=== PATIENT | female | born 1960 | race African-American/Black ===

== ENCOUNTER 2017-04-02 16:37 | Emergency (ER) | payer MEDICARE, MEDICAID ==
[2017-04-02 16:47] VITALS: BP 121/90
--- NOTE | 2017-04-02 17:08 | UC ---
Throat Pain/Nasal Ranulfo HPI - HPI Summary HPI Summary: ST and cough starting 2-3 days ago. Works at the [employer], there are cases of strep there. - History of Current Complaint Chief Complaint: UCRespiratory Stated Complaint: SORE THROAT Time Seen by Provider: 04/02/17 16:54 Hx Obtained From: Patient Hx Last Menstrual Period: 11/2013 ?: No Onset/Duration: Gradual Onset, Lasting Days Severity: Moderate Cough: Sputum Appears - green/yellow, states not coughing a lot Associated Signs & Symptoms: Negative: Vomiting, Rash - Allergies/Home Medications Allergies/Adverse Reactions: Allergies Allergy/AdvReac Type Severity Reaction Status Date / Time Latex Allergy Severe Swelling Verified 03/22/17 11:18 PMH/Surg Hx/FS Hx/Imm Hx Respiratory History: Bronchitis Cancer History: Other - kidney CA Other Cancer History: kidney Other History Of: Negative For: Anticoagulant Therapy - Surgical History Surgical History: Yes Surgery Procedure, Year, and Place: Hernia repair x2,. Cone biopsy x2,. Ectopic x3,. Lt Ankle surgery x3,. Right nephrectomy 05/25/10 ( DUE TO CANCER);. Laproscopy x1,. LEFT BREAST BIOPSY, 2013 [facility]. - Family History Known Family History: Positive: Cardiac Disease, Hypertension - Social History Occupation: Employed Full-time Alcohol Use: Occasionally Alcohol Amount: 3 BEERS 2-3X WKLY Substance Use Type: None, Marijuana Substance Use Comment - Amount & Last Used: states none Smoking Status (MU): Former Smoker Type: Cigarettes Amount Used/How Often: 1/2 PPD Length of Time of Smoking/Using Tobacco: 18 years Have You Smoked in the Last Year: No When Did the Patient Quit Smoking/Using Tobacco: 7 years ago Household Exposure Type: Cigarettes - Immunization History Most Recent Influenza Vaccination: NEVER & REFUSES Most Recent Tetanus Shot: 2004 Most Recent Pneumonia Vaccination: NEVER & REFUSES Review of Systems Constitutional: Negative Skin: Negative Eyes: Negative ENT: Sore Throat Respiratory: Cough Cardiovascular: Negative Gastrointestinal: Negative Genitourinary: Negative Motor: Negative Neurovascular: Negative Musculoskeletal: Negative Neurological: Negative Psychological: Negative All Other Systems Reviewed And Are Negative: Yes Physical Exam Triage Information Reviewed: Yes Appearance: Well-Appearing, No Pain Distress, Well-Nourished Vital Signs: Initial Vital Signs Temp 98.1 F 04/02/17 16:43 Pulse 76 04/02/17 16:43 Resp 18 04/02/17 16:43 BP 121/90 04/02/17 16:43 Pulse Ox 100 04/02/17 16:43 Vital Signs Reviewed: Yes Eye Exam: Normal, Other - PERRL Eyes: Positive: Conjunctiva Clear ENT: Positive: TMs normal, Tonsillar swelling, Tonsillar exudate. Negative: Pharyngeal erythema Dental Exam: Normal Neck exam: Normal Neck: Positive: Supple, Nontender, No Lymphadenopathy Respiratory Exam: Other - occ productive cough Respiratory: Positive: Chest non-tender, Lungs clear, Normal breath sounds, No respiratory distress, No accessory muscle use Cardiovascular Exam: Normal Cardiovascular: Positive: RRR, No Murmur Musculoskeletal Exam: Normal Neurological Exam: Normal Neurological: Positive: Alert Psychological Exam: Normal Skin Exam: Normal Throat Pain/Nasal Course/Dx - Differential Dx/Diagnosis Provider Diagnoses: tonsillitis. bronchitis Discharge - Discharge Plan Condition: Stable Disposition: HOME Prescriptions: Amoxicillin (*) [Amoxicillin 875 MG (*)] 875 mg PO BID #10 tab Fluconazole [Diflucan 150 MG (NF)] 150 mg PO ONCE #1 tab Patient Education Materials: Tonsillitis (ED) Referrals: Lindsay Feng MD [Primary Care Provider] - Additional Instructions: Call or return if you develop increasing fever, shortness of breath, chest pain , bloody sputum, or otherwise worsen. If you have not improved at all after several days, contact your primary care physician or return here.
== END 2017-04-02 17:37 | disposition home or self-care (01) ==
LOC: UCEAST 16:37
DX: J03.90 Acute tonsillitis, unspecified (principal); J40 Bronchitis, not specified as acute or chronic; Z87.891 Personal history of nicotine dependence
CPT/HCPCS: 87651; 99212; G0463

== ENCOUNTER 2017-04-21 10:50 | Emergency (ER) | payer MEDICARE, MEDICAID ==
[2017-04-21 10:56] VITALS: BP 140/95
--- NOTE | 2017-04-21 11:35 | UC ---
Back Pain HPI - HPI Summary HPI Summary: LEFT ANKLE TWISTED YESTERDAY, FALL ONTO RIGHT RIBS ONTO UTILITY METER. NO BRUISING, BUT HAS HAD PAIN IN RIGHT RIBS. PATIENT DROVE TO URGENT CARE, HAS HAD NEPHRECTOMY OF RIGHT KIDNEY 2011. NO FEVER, NO ABDOMINAL PAIN. TOOK TYLENOL A FEW HOURS AGO, WITH NO IMPROVEMENT - History of Current Complaint Chief Complaint: UCTrauma Stated Complaint: BACK/SIDE PAIN-FALL Time Seen by Provider: 04/21/17 10:59 Hx Obtained From: Patient Hx Last Menstrual Period: does not get Onset/Duration: Sudden Onset, Lasting Days, Still Present Timing: Intermittent Severity Initially: Moderate Severity Currently: Severe Back Pain: Is Discrete @ - RIGHT RIBS/SKIN Character: Sharp, Dull, Aching Aggravating: Movement, Lifting, Bending, Walking, Cough Alleviating: Nothing Associated Signs And Symptoms: Positive: Flank Pain, Pain with Weight Bearing. Negative: Swelling, Redness, Bruising, Fever, Weakness, Numbness, Tingling, Abdominal Pain, Bladder Incontinence, Bowel Incontinence, Weight Loss - Risk Factors TAD Risk Factors: Negative Cauda Equina Risk Factors: Negative Epidural Abscess Risk Factors: Negative - Allergies/Home Medications Allergies/Adverse Reactions: Allergies Allergy/AdvReac Type Severity Reaction Status Date / Time Latex Allergy Severe Swelling Verified 04/21/17 10:56 PMH/Surg Hx/FS Hx/Imm Hx Previously Healthy: Yes Other History Of: Negative For: Anticoagulant Therapy - Surgical History Surgical History: Yes Surgery Procedure, Year, and Place: Hernia repair x2,. Cone biopsy x2,. Ectopic x3,. Lt Ankle surgery x3,. Right nephrectomy 05/25/10 ( DUE TO CANCER);. Laproscopy x1,. LEFT BREAST BIOPSY, 2013 [facility]. - Family History Known Family History: Positive: Cardiac Disease, Hypertension - Social History Lives: With Family Alcohol Use: Occasionally Alcohol Amount: 3 BEERS 2-3X [facility] Substance Use Type: None Substance Use Comment - Amount & Last Used: states none Smoking Status (MU): Former Smoker Type: Cigarettes Amount Used/How Often: 1/2 PPD Length of Time of Smoking/Using Tobacco: 18 years Have You Smoked in the Last Year: No When Did the Patient Quit Smoking/Using Tobacco: 7 years ago Household Exposure Type: Cigarettes - Immunization History Most Recent Influenza Vaccination: NEVER & REFUSES Most Recent Tetanus Shot: 2004 Most Recent Pneumonia Vaccination: NEVER & REFUSES Review of Systems Constitutional: Negative Skin: Negative Eyes: Negative ENT: Negative Respiratory: Negative Cardiovascular: Negative Gastrointestinal: Negative Genitourinary: Negative Motor: Negative Neurovascular: Negative Musculoskeletal: Arthralgia, Myalgia Neurological: Negative Psychological: Negative All Other Systems Reviewed And Are Negative: Yes Physical Exam Triage Information Reviewed: Yes Appearance: Well-Appearing, Well-Nourished, Pain Distress Vital Signs: Initial Vital Signs Temp 98.1 F 04/21/17 10:52 Pulse 73 04/21/17 10:52 Resp 16 04/21/17 10:52 BP 140/95 04/21/17 10:52 Pulse Ox 98 04/21/17 10:52 Vital Signs Reviewed: Yes Eye Exam: Normal ENT Exam: Normal ENT: Positive: Normal ENT inspection, Hearing grossly normal Dental Exam: Normal Neck exam: Normal Neck: Positive: Supple, Nontender, No Lymphadenopathy Respiratory Exam: Normal Respiratory: Positive: Lungs clear, Normal breath sounds, No respiratory distress, No accessory muscle use. Negative: Chest non-tender - CHEST TENDER AT RIGHT RIB CAGE Cardiovascular Exam: Normal Cardiovascular: Positive: RRR, No Murmur, Pulses Normal, Brisk Capillary Refill Abdominal Exam: Normal Abdomen Description: Positive: Nontender, No Organomegaly Musculoskeletal: Positive: Strength Intact, ROM Intact, No Edema, Other: - PAIN IN LEFT ANKLE Neurological Exam: Normal Psychological Exam: Normal Skin Exam: Normal Back Pain Course/Dx - Course Course Of Treatment: ALTHOUGH PATIENT AMBULATED TO FACILITY, UNABLE TO GET INTO WHEELCHAIR FOR XRAY, UNABLE TO WALK TO BATHROOM FOR URINALYSIS; PATIENT DROVE, REFUSED AMBULANCE WHEN OFFERED. LEFT AMA WALKED UNASSISTED TO PARKING LOT TO DRIVE TO EMERGENCY DEPARTMENT. - Differential Dx/Diagnosis Differential Diagnosis/HQI/PQRI: Strain, Sprain Provider Diagnoses: RIGHT RIB PAIN; LEFT ANKLE PAIN Discharge - Discharge Plan Condition: Stable Disposition: AGAINST MEDICAL ADVICE
== END 2017-04-21 11:25 | disposition left against medical advice (07) ==
LOC: UCEAST 10:50
DX: R07.81 Pleurodynia (principal); M25.572 Pain in left ankle and joints of left foot; W19.XXXA Unspecified fall, initial encounter; Y93.9 Activity, unspecified; Y92.9 Unspecified place or not applicable; Y99.9 Unspecified external cause status; Z90.5 Acquired absence of kidney; Z72.0 Tobacco use
CPT/HCPCS: 99212; G0463

== ENCOUNTER → 2017-04-21 11:50 | Emergency (ER) | payer MEDICARE, MEDICAID ==
[~2017-04-21 11:50] MED LIST: oxyCODONE/Acetamin 5/325 MG* TAB PO ONE
[2017-04-21 11:56] VITALS: BP 172/90
--- NOTE | 2017-04-21 13:00 | RAD ---
HISTORY: Fall, right posterior lateral rib pain COMPARISONS: None VIEWS: 4, Frontal view of the chest with frontal and oblique views of the right hemithorax. FINDINGS: There is no displaced rib fracture or pneumothorax. The visualized lungs are clear. IMPRESSION: NO DISPLACED RIB FRACTURE OR PNEUMOTHORAX
--- NOTE | 2017-04-21 13:01 | RAD ---
HISTORY: Left ankle pain, trauma COMPARISONS: March 13, 2017 VIEWS: 3, Frontal, lateral, and oblique views of the left ankle FINDINGS: BONE DENSITY: Normal. BONES: The patient is status post internal fixation of the distal fibula. There is no appreciable hardware failure or osteolysis. JOINTS: There is no arthropathy. ALIGNMENT: There is no dislocation. SOFT TISSUES: Unremarkable. OTHER FINDINGS: None. IMPRESSION: POST SURGICAL CHANGE TO THE DISTAL LEFT FIBULA. NO ACUTE OSSEOUS INJURY. IF SYMPTOMS PERSIST, RECOMMEND REPEAT IMAGING.
--- NOTE | 2017-04-21 13:09 | ED ---
Adult Trauma - HPI Summary HPI Summary: 56F presents with right sided rib pain and left ankle pain s/p fall last night. She states her ankle often gives out which it did and she feel onto a tool box on her right rib. She denies any head trauma or LOC. She denies any SOB or abdominal pain. She is able to ambulate. She states she is in extreme pain but she is talking on the phone in the room. She has been taking ibuprofen for her pain. She has history of only one kidney so does not take ibuprofen. - History of Current Complaint Chief Complaint: EDBackInjuryPain Stated Complaint: FALL/BACK PAIN Time Seen by Provider: 04/21/17 12:06 Pain Intensity: 10 - Additional Pertinent History Primary Care Physician: MOSES - Allergy/Home Medications Allergies/Adverse Reactions: Allergies Allergy/AdvReac Type Severity Reaction Status Date / Time Latex Allergy Severe Swelling Verified 04/21/17 10:56 PMH/Surg Hx/FS Hx/Imm Hx Endocrine/Hematology History: Denies: Hx Anticoagulant Therapy, Hx Diabetes, Hx Thyroid Disease, Hx Anemia , Other Endocrine/Hematological Disorders Cardiovascular History: Reports: Hx Angina Denies: Hx Hypertension, Hx Pacemaker/ICD, Other Cardiovascular Problems/ Disorders Respiratory History: Reports: Hx Chronic Bronchitis, Hx Pneumonia, Other Respiratory Problems/Disorders - left lateral rib fracture 11/04 Denies: Hx Asthma - BRONCHITIS USED INHALER, Hx Chronic Obstructive Pulmonary Disease (COPD) GI History: Reports: Hx Gastroesophageal Reflux Disease, Hx Hiatal Hernia, Hx Jaundice - A Denies: Hx Ulcer, Other GI Disorders History: Reports: Other Problems/Disorders - R KIDNEY CANCER W/nephrectomy Denies: Hx Acute Renal Failure, Hx Renal Disease Musculoskeletal History: Reports: Hx Arthritis, Hx Back Problems - LBP & CERVIAL CANCER, Hx Fibromyalgia, Hx Orthopedic Injury, Hx Tendonitis, Other Musculoskeletal History - herniation Sensory History: Reports: Hx Contacts or Glasses Denies: Hx Hearing Aid, Other Sensory Impairments Opthamlomology History: Reports: Hx Contacts or Glasses Denies: Other Sensory Impairments Neurological History: Denies: Hx Dementia, Hx Seizures, Other Neuro Impairments/Disorders Psychiatric History: Reports: Hx Anxiety, Hx Depression, Hx Post Traumatic Stress Disorder, Hx Suicide Attempt - SI IN 2012 [facility] Denies: Hx Attention Deficit Hyperactivity Disorder, Hx Eating Disorder, Hx Panic Disorder, Hx Inpatient Treatment, Hx Community Mental Health Tx, Hx Schizophrenia, Hx Bipolar Disorder, Hx of Violent Episodes Against Others, Hx Substance Abuse, Other Psychiatric Issues/Disorders - Cancer History Cancer Type, Location and Year: R KIDNEY CA, S/P NEPHRECTOMY Hx Chemotherapy: No Hx Radiation Therapy: No Hx Palliative Cancer Treatment: No - Surgical History Surgery Procedure, Year, and Place: Hernia repair x2,. Cone biopsy x2,. Ectopic x3,. Lt Ankle surgery x3,. Right nephrectomy 05/25/10 ( DUE TO CANCER);. Laproscopy x1,. LEFT BREAST BIOPSY, 2013 [facility]. Hx Anesthesia Reactions: No - Immunization History Date of Tetanus Vaccine: Unk Date of Influenza Vaccine: None Infectious Disease History: No Infectious Disease History: Reports: Hx Clostridium Difficile - 2009 Denies: Hx Hepatitis, Hx Human Immunodeficiency Virus (HIV), Hx of Known/ Suspected MRSA, Hx Shingles, Hx Tuberculosis, Hx Known/Suspected VRE, Hx Known/ Suspected VRSA, History Other Infectious Disease, Traveled Outside the [place] in Last 30 Days - Family History Known Family History: Positive: Cardiac Disease, Hypertension - Social History Alcohol Use: Occasionally Alcohol Amount: 3 BEERS 2-3X [facility] Substance Use Type: Reports: None Substance Use Comment - Amount & Last Used: states none Smoking Status (MU): Former Smoker Type: Cigarettes Amount Used/How Often: 1/2 PPD Length of Time of Smoking/Using Tobacco: 18 years Have You Smoked in the Last Year: No Review of Systems Negative: Fever Positive: Other - right rib pain Negative: Shortness Of Breath Positive: Myalgia - left ankle pain All Other Systems Reviewed And Are Negative: Yes Physical Exam Triage Information Reviewed: Yes Vital Signs On Initial Exam: Initial Vitals Temp Pulse Resp BP Pulse Ox 96.9 F 67 16 172/95 99 04/21/17 11:52 04/21/17 11:52 04/21/17 11:52 04/21/17 11:52 04/21/17 11:52 Vital Signs Reviewed: Yes Appearance: Positive: Well-Appearing Skin: Positive: Warm, Dry Head/Face: Positive: Normal Head/Face Inspection Eyes: Positive: Normal, Conjunctiva Clear Respiratory/Lung Sounds: Positive: Clear to Auscultation, Breath Sounds Present , Other - tender over right ribs Cardiovascular: Positive: Normal, RRR Abdomen Description: Positive: Nontender, Soft Bowel Sounds: Positive: Present Musculoskeletal: Positive: Strength/ROM Intact - left ankle, Other - tender over lateral malleolus, good pulses, capillary refil< 2secs, nontender back Diagnostics - Vital Signs Vital Signs Temp Pulse Resp BP Pulse Ox 04/21/17 13:01 18 04/21/17 11:55 96.3 F 69 16 172/90 96 04/21/17 11:52 96.9 F 67 16 172/95 99 - Laboratory Lab Statement: Any lab studies that have been ordered have been reviewed, and results considered in the medical decision making process. - Radiology rib Xray Interpretation: No Acute Changes - IMPRESSION: NO DISPLACED RIB FRACTURE OR PNEUMOTHORAX Radiology Interpretation Completed By: Radiologist ankle Xray Interpretation: No Acute Changes - IMPRESSION: POST SURGICAL CHANGE TO THE DISTAL LEFT FIBULA. NO ACUTE OSSEOUS INJURY. IF SYMPTOMS PERSIST, RECOMMEND REPEAT IMAGING. Radiology Interpretation Completed By: Radiologist Adult Trauma Course/Dx - Course Course Of Treatment: 56F presents with right sided rib pain and left ankle pain s/p fall last night. She states her ankle often gives out which it did and she feel onto a tool box on her right rib. She denies any head trauma or LOC. She denies any SOB or abdominal pain. She is able to ambulate. She states she is in extreme pain but she is talking on the phone in the room. tender across right rib and left lateral malleolus. xray ribs and ankle normal. Gave perocet and patient is sleeping in room when came to give xray results. told to take tyenlol. told to follow up with primary about ankle giving out. patient understands and agrees with plan - Diagnoses Differential Diagnosis/HQI/PQRI: Positive: Contusion(s), Sprain, Strain Provider Diagnoses: Contusion of rib on right side, Left ankle pain Discharge - Discharge Plan Condition: Good Disposition: HOME Patient Education Materials: Rib Contusion (ED) Referrals: Lindsay Feng MD [Primary Care Provider] - Additional Instructions: Wear brace on ankle Take deep breath throughout the day Take Tylenol for pain every 6 hours Follow up with primary care physician within 5 days Return to ED if develop new productive cough, fever, or any new or worsening symptoms
== END | disposition home or self-care (01) ==
LOC: ED 11:50
DX: M25.572 Pain in left ankle and joints of left foot (principal); S20.211A Contusion of right front wall of thorax, initial encounter; W19.XXXA Unspecified fall, initial encounter; Y93.9 Activity, unspecified; Y92.9 Unspecified place or not applicable
CPT/HCPCS: 99281; A9270-GY

== ENCOUNTER 2017-10-10 11:58 | Emergency (ER) | payer MEDICARE, MEDICAID ==
[2017-10-10 12:06] VITALS: BP 120/83
== END 2017-10-10 13:14 | disposition left against medical advice (07) ==
LOC: ED 11:58
DX: R10.84 Generalized abdominal pain (principal); Z53.21 Procedure and treatment not carried out due to patient leaving prior to being seen by health care provider

== ENCOUNTER 2017-11-19 09:36 | Day surgery (SDC) | payer MEDICARE, MEDICAID ==
[~2017-11-19 09:36] MED LIST changes: +Acetaminophen IV 1GM/100ML * 1,000 MG/100 ML VIAL IVPB ONE; +Buffered Lidocaine 0.9% SYRIN* 5 ML/SYR SYRINGE INTRADERM ONE; +Dexamethasone IV* 4 MG/ML 1 ML (4 MG) IV SLOW PU ONE; +Midazolam* 1 MG/ML 2 ML VIAL (2 MG) ONE; +Sodium Citrate/Citric Acid* 15 ML UDC PO ONE; +fentaNYL* 50 MCG/ML 2 ML VIAL (100 MCG VIAL) ONE; -oxyCODONE/Acetamin 5/325 MG* TAB PO ONE
[2017-11-19] MEDS ORDERED: Sodium Citrate/Citric Acid* 15 ML UDC ONE (10:10)
[2017-11-19] MEDS ORDERED: Buffered Lidocaine 0.9% SYRIN* 5 ML/SYR SYRINGE ONE (10:10)
[2017-11-19] MEDS ORDERED: Dexamethasone IV* 4 MG/ML 1 ML (4 MG) ONE (10:10)
[2017-11-19] MEDS ORDERED: ceFAZolin 2 GM PREMIX (*) 2 GM/50 ML BAG IVPB ONE (11:36)
[2017-11-19] MEDS ORDERED: Scopolamine 1.5 mg* PATCH TRANSDERM PRN (12:10)
[2017-11-19] MEDS ORDERED: Naloxone* 0.4 MG/ML 1 ML VIAL IV PRN (12:10)
[2017-11-19] MEDS ORDERED: Ondansetron INJ* 2 MG/ML VIAL IV PRN (12:10)
[2017-11-19] MEDS ORDERED: Rocuronium* 10 MG/ML VIAL ONE (12:16)
[2017-11-19] MEDS ORDERED: EPHEDrine (Pressors)* 50 MG/ML VIAL ONE (13:12)
[2017-11-19] MEDS ORDERED: Propofol* 10 MG/ML 20 ML BTL IV PUSH ONE ×2 (13:13→14:17)
[2017-11-19] MEDS ORDERED: Lidocaine 2% PF * 5 ML VIAL ONE (13:13)
[2017-11-19] MEDS ORDERED: HYDROmorphone INJ* 1 MG/ML CARPUJECT SYRINGE ONE (13:19)
[2017-11-19] MEDS ORDERED: Metoprolol Tartrate IV* 1 MG/ML 5 ML VIAL ONE (13:24)
[2017-11-19] MEDS ORDERED: Esmolol* 10 MG/ML 10 ML (100 mg) ONE (13:25)
[2017-11-19] MEDS ORDERED: Ondansetron INJ* 2 MG/ML VIAL ONE (14:08)
[2017-11-19] MEDS ORDERED: fentaNYL* 50 MCG/ML 2 ML VIAL (100 MCG VIAL) ONE ×2 (14:19→14:38)
[2017-11-19] MEDS ORDERED: Acetaminophen IV 1GM/100ML * 100 ML ONE (14:38)
[2017-11-19] MEDS ORDERED: HYDROmorphone INJ* 2 MG/ML CARPUJECT SYRINGE ONE (14:38)
[2017-11-19] MEDS ORDERED: oxyCODONE TAB* 5 MG TAB ONE (14:38)
[2017-11-19] MEDS: fentaNYL* 50 MCG/ML 2 ML VIAL (100 MCG VIAL) IV PRN ×2 (14:40→14:56)
[2017-11-19] MEDS: HYDROmorphone INJ* 1 MG/ML CARPUJECT SYRINGE IV PRN ×3 (14:43→15:09)
[2017-11-19] MEDS: oxyCODONE TAB* 5 MG TAB PO PRN ×2 (14:45→14:46)
[2017-11-19 15:58] VITALS: BP 129/86
--- NOTE | 2017-11-20 10:09 | OP ---
DATE OF OPERATION: 11/19/17 - SDS DATE OF : 64 SURGEON: Jabari Aviles MD PONY EDGER: Reny Bryant PA-C ANESTHESIOLOGIST: Gloria Desai MD ANESTHESIA: General PRE-OP DIAGNOSES: Painful hardware left fibula and posterior tibial tendinosis with hyper valgus. POST-OP DIAGNOSES: Painful hardware left fibula and posterior tibial tendinosis with hyper valgus including subluxation peroneal tendons. OPERATIVE PROCEDURE: Left foot post tibial reconstruction, flexor digitorum transfer, calcanal osteotomy hardware removal, exploration peroneal tendons. DESCRIPTION OF PROCEDURE: The patient was taken to the operating room where lateral longitudinal incision was made over the distal fibula. We isolated the small fragment screws and we were able to remove the fibular plate. We noted that the peroneal tendons were subluxed laterally around the fibula. We deepened the groove of the fibula by making an osteotomy along the posterolateral corners of the fibula driving the posterior cortex anteriorly. We repaired the retinaculum to the posterior aspect of the fibula using interrupted 0-Vicryl through bone sutures. Distally we subluxed the brevis and longus tendons dorsally. We made an ostomy from lateral to medially using the microsagittal saw directly through the groove of the peroneus longus. Osteotomy was completed with 1-inch straight osteotome and then we displaced the calcaneus medially a full centimeter. This was pinned from plantar to dorsal with a 65-mm length partially threaded cannulated screw. The lateral wound was then closed with Vicryl sutures and Prolene for the skin and lex. We then made a longitudinal medial incision over the posterior tibial tendon. It was thickened through its distal portion. We harvested the FDL tendon just deep the posterior tibial tendon. We traced this down to the knot of Antoni and the sewed the FDL tendon side to side to the FHL tendon. We then released the FDL tendon pulling this proximally. This was anchored with a #0 Vicryl suture and transferred plantar to dorsal through 5 mm drill hole at the medial aspect of the navicular. We tied this over the dorsal periosteum. We then whip- stitched the posterior tibial tendon to the FDL tendon at the transfer. We then irrigated thoroughly closing with Vicryl and lex and a compression dressing, plaster splint was applied. [id number]/[facility] #: [id number] [facility]
[2017-11-22] MEDS ORDERED: Scopolamine PATCH Remove* 1 NOTE MISC PATCH OFF ONE (12:11)
== END 2017-11-19 16:08 | disposition home or self-care (01) ==
LOC: OR 09:36
PROVIDERS: ATTEND Orthopaedic Surgery
DX: M21.072 Valgus deformity, not elsewhere classified, left ankle (principal); M76.822 Posterior tibial tendinitis, left leg; T84.84XA Pain due to internal orthopedic prosthetic devices, implants and grafts, initial encounter; Y83.1 Surgical operation with implant of artificial internal device as the cause of abnormal reaction of the patient, or of later complication, without mention of misadventure at the time of the procedure; M79.7 Fibromyalgia; R91.1 Solitary pulmonary nodule; I73.00 Raynaud's syndrome without gangrene; F41.9 Anxiety disorder, unspecified; Z85.528 Personal history of other malignant neoplasm of kidney; Z87.891 Personal history of nicotine dependence
CPT/HCPCS: A9270-GY; C1713; C1776; J0690; J1100; J1170; J2250; J2405; J2704; J3010; J3490